=== PATIENT | male | born 1970 | race Caucasian/White ===

== ENCOUNTER 2022-02-09 14:22 | Emergency (ER) | payer BC ==
[2022-02-09] MEDS ORDERED: Ketorolac 60 MG/2 ML SDV IM ONE (15:25)
== END 2022-02-09 17:12 | disposition home or self-care (01) ==
LOC: MW.ED 14:22
DX: M54.12 Radiculopathy, cervical region (principal); M25.822 Other specified joint disorders, left elbow
CPT/HCPCS: 72040; 72040-26; 99283; 99284-25